=== PATIENT | female | born 1980 | race Caucasian/White ===

== ENCOUNTER 2018-01-01 03:54 | Emergency (ER) | payer OTHER ==
[~2018-01-01] VITALS: Ht 172.7 cm; Wt 138.2 kg
[~2018-01-01 03:54] MED LIST: EFFEXOR100 MG PO; ENDOCET 5-3251 EACH PO; KEFLEX500 MG PO; Motrin PO; NAPROSYN500 MG PO; NORCO 5/3251 TABLET PO; VENLAFAXINE HC150 M1 PO
[2018-01-01] MEDS ORDERED: PREDNISONE20 MG PO (07:12)
[2018-01-01 07:18] VITALS: BP 132/78
== END 2018-01-01 07:19 | disposition home or self-care (01) ==
LOC: EME 03:54
DX: J01.90 Acute sinusitis, unspecified (principal); J40 Bronchitis, not specified as acute or chronic; F17.200 Nicotine dependence, unspecified, uncomplicated; Z88.0 Allergy status to penicillin
CPT/HCPCS: 71046; 94640; 99281; 99284; J7512